=== PATIENT | male | born 1965 | race Caucasian/White ===

== ENCOUNTER → 2019-11-10 13:59 | Outpatient (REF) | payer OTHER, SELFPAY | LOC: ANHLAB 13:59 | PROVIDERS: PCP Family Medicine; Visit Provider Nurse Practitioner Family | DX: C44.329 Squamous cell carcinoma of skin of other parts of face (principal) | CPT/HCPCS: 88305 ==

== ENCOUNTER → 2019-12-08 10:20 | Outpatient (REF) | payer OTHER, SELFPAY | LOC: ANHLAB 10:20 | PROVIDERS: PCP Family Medicine; Visit Provider Nurse Practitioner Family | DX: C44.329 Squamous cell carcinoma of skin of other parts of face (principal) | CPT/HCPCS: 88305; 88331 ==

== ENCOUNTER 2021-01-01 19:59 | Emergency (ER) | payer BC, SELFPAY ==
--- NOTE | ~2021-01-01 | XR_ITS ---
EXAMINATION: XR ankle RT 2V EXAM DATE: 01/01/2021 20:26 INDICATION: Right ankle pain/diffuse swelling post fall from ladder. TECHNIQUE: Frontal and lateral projections of the right ankle. There is no prior study for comparis on. FINDINGS: Comminuted acute closed posttraumatic right calcaneal fracture with decreased Boehler's an gle. There may be a fracture of the posterior aspect of the lateral malleolus as seen on the lateral projection. No definite tibial or talar fracture. Extensive swelling surrounding this ankle. IMPRESSION: 1. Comminuted right calcaneal fracture with decreased Boehler's angle. 2. Possible distal fibular posterior avulsion. Reviewed, dictated and finalized at location A.
[2021-01-01 20:09] VITALS: BP 140/80; PULSE 88; RESP 16; TEMP 37; O2SAT 98
[2021-01-01] MEDS: TETANUS,DIPHTHERIA,AC PERTUSSIS ADULT 0.5 ML (ADACEL) IM (20:24)
[2021-01-01] MEDS: KETOROLAC (*BKC) 60 MG/2 ML VIAL IM (20:25)
--- NOTE | 2021-01-01 20:51 | ED.LOWEXIN ---
HPI - Extremity Injury (Lower) General Chief Complaint: Extremity Injury, Lower Stated Complaint: ankle injury Source: patient and family Mode of arrival: wheelchair Limitations: no limitations History of Present Illness HPI Narrative: this is a 55-year-old gentleman that presents with his after he fell off a ladder directly onto his right heel causing pain inflammation swelling and decreased range of motion in his right heel with a swollen ankle pain with movement. Also has hematoma around the left eye but otherwise no blurry vision no headache no nausea vomiting did not lose consciousness this occurred earlier today. MD complaint: ankle injury Onset (ago): hour(s) Type of Injury: blunt Place: home Severity: moderate Severity scale (1-10): 8 Relieving factors: nothing Exacerbating factors: weight bearing Context: fall Associated symptoms: swelling, numbness, tingling and unable to bear weight Other symptoms: none Related Data Home Medications Medication Instructions Recorded Confirmed aspirin 81 mg tablet,delayed 81 mg PO DAILY 11/10/19 01/01/21 release loratadine 10 mg tablet 10 mg PO DAILY 11/10/19 01/01/21 rosuvastatin 10 mg sprinkle capsule 10 mg PO DAILY 11/10/19 01/01/21 mupirocin [Centany] 1 applic TOPICAL BID 01/01/21 01/01/21 Allergies Allergy/AdvReac Type Severity Reaction Status Date / Time No Known Allergies Allergy Verified 05/29/20 15:01 Review of Systems Review of Systems: All systems reviewed & are unremarkable except as noted in HPI and below PMFSH Past Medical History Medical History (Updated 01/01/21 @ 20:56 by Angus He MD) Heartburn High cholesterol Surgical History Surgical History History of cholecystectomy Social History Social History Smoking status: Never smoker Alcohol intake: never Substance use: never Gender identity (if verbalized by the patient): Male Exam Const: General: no acute distress Orientation/consciousness: patient oriented x3 HENMT: Head: normal to inspection Eyes: Conjunctivae: conjunctivae normal Pupils: Equal, round and reactive pupils present Neck: Neck: normal visual inspection, no lymphadenopathy and no meningeal signs Chest: Chest palpation & inspection: normal inspection of the chest Resp: Effort & Inspection: normal respiratory effort Auscultation: clear to auscultation bilaterally Cardio: Rate: regular rate Rhythm: regular rhythm GI: GI Palp: Yes Soft to palpation Back/Spine/Pelvis: Back: no CVA tenderness Skin: General skin exam: normal color Rashes: no rashes Neuro: General: patient oriented x3 Extrem: General: normal to inspection Psych: Mental Status: mental status grossly normal Affect: normal affect Course Course Emergency Course: Patient received 60 mg IM Toradol which did improve his pain level the patient was advised that he had a comminuted displaced calcaneal fracture of the right and placed a boot on his right foot ankle and advised him to follow-up with his primary care physician to be referred to orthopedics. Vital Signs Vital signs: Vital Signs Temperature 37.0 C 01/01/21 20:09 Pulse Rate 88 01/01/21 20:09 Respiratory Rate 16 01/01/21 20:09 Blood Pressure 140/80 01/01/21 20:09 Pulse Oximetry 98 01/01/21 20:09 Temperature 37.0 C 01/01/21 20:09 Pulse Rate 88 01/01/21 20:09 Respiratory Rate 16 01/01/21 20:09 Blood Pressure 140/80 01/01/21 20:09 Pulse Oximetry 98 01/01/21 20:09 Critical Care Time Critical Care Time Critical Care Time: No Discharge Plan Discharge Clinical Impression: Calcaneal fracture Qualifiers: Encounter type: initial encounter Calcaneus location: unspecified portion of calcaneus Fracture type: closed Fracture alignment: displaced Laterality: right Qualified Code(s): S92.001A - Unspecified fracture of rig
--- NOTE | 2021-01-01 20:56 | PC.NURSE ---
2049 splint walker boot applied 2050 instructions given to 2099 nail beds andrea good, moves toes
[2021-01-01 21:10] VITALS: BP 140/88; PULSE 90; RESP 16; TEMP 36.6; O2SAT 98
== END 2021-01-01 21:11 | disposition home or self-care (01) ==
PROVIDERS: Emergency Provider Emergency Medicine; PCP Family Medicine
DX: S92.001A Unspecified fracture of right calcaneus, initial encounter for closed fracture (principal); W11.XXXA Fall on and from ladder, initial encounter
CPT/HCPCS: 73600; 90471; 90715; 96372; 99283; 99284; J1885; L2112

== ENCOUNTER 2023-06-23 13:37 | Outpatient (CLI) | payer BC, SELFPAY ==
--- NOTE | ~2023-06-23 | XR_ITS ---
EXAMINATION: XR chest 2V 06/23/2023 14:01 INDICATION: Chest congestion PROCEDURE: 2 view chest COMPARISON: No prior studies for comparison. FINDINGS: The lungs are clear. The cardiomediastinal silhouette is within normal limits. There are no pleural effusions. There is no pneumothorax suspected. There is a densely calcified nodule in th e posterior lower lung overlying the posterior costophrenic sulcus which may represent a healed rib f racture or calcified granuloma. There are cholecystectomy clips. IMPRESSION: 1: NO ACUTE CARDIOPULMONARY DISEASE. Reviewed, dictated and finalized at location B.
== END 2023-06-23 13:38 | disposition home or self-care (01) ==
LOC: CHSIMG 13:40
PROVIDERS: PCP Family Medicine; Visit Provider Physician Assistant
DX: J20.9 Acute bronchitis, unspecified (principal)
CPT/HCPCS: 71046